=== PATIENT | male | born 1980 | race Hispanic/Latino ===

== ENCOUNTER 2020-09-01 07:00 | Emergency (ER) | payer SELFPAY ==
[2020-09-01] VITALS (17 sets, daily range): BP systolic 111–143; BP diastolic 69–85
[~2020-09-01] VITALS: Ht 172.7 cm; Wt 81.6 kg
[2020-09-01] MEDS ORDERED: IOHEXOL-350 75 ML VIAL IV ONE (07:40)
[2020-09-01 07:56] LABS: CREATININE 1.1 mg/dL (0.5-1.5); POTASSIUM 3.8 mmol/L (3.5-5.1)
[2020-09-01 08:00] LABS: ALBUMIN 3.7 g/dL (3.5-5.0); BILIRUBIN,TOTAL 0.3 mg/dL (0.2-1.0)
[2020-09-01 08:01] LABS: BASOPHILS % (AUTO) 0.9 % (0.0-5.0); EOSINOPHILS % (AUTO) 2.4 % (0.0-8.0); HEMATOCRIT 44.9 % (42-54); LYMPHOCYTES % (AUTO) 31.4 % (21.0-51.0); MEAN CORPUSCULAR HEMOGLOBIN 28.6 pg (27.0-33.0); MEAN CORPUSCULAR HGB CONC 32.3 g/dL (32.0-36.0); MEAN CORPUSCULAR VOLUME 88.6 fL (79-99); MONOCYTES % (AUTO) 7.9 % (3.0-13.0); PLATELET COUNT (AUTO) 307 K/uL (130-400); RED BLOOD CELL COUNT(AUTO) 5.07 MIL/uL (4.50-6.20); RED CELL DISTRIBUTION WIDTH 13.5 % (11.0-15.5); WHITE BLOOD COUNT (AUTO) 5.4 K/uL (4.8-10.8)
[2020-09-01 08:08] LABS: INR 1.02 (0.85-1.15); PROTHROMBIN TIME 11.1 SEC (9.6-11.6)
[2020-09-01 08:09] LABS: PARTIAL THROMBOPLASTIN TIME 28.1 SEC (26.3-35.5)
[2020-09-01] MEDS ORDERED: TETANUS/DIPHTHERIA TOXOID [ADULT] 0.5 ML VIAL IM SCH (09:42)
[2020-09-01] MEDS ORDERED: KETOROLAC 30MG VIAL (30MG/ML) IV SCH (09:45)
[2020-09-01] MEDS ORDERED: PHARMACY COMMUNICATION MISC SCH (09:45)
[2020-09-01] MEDS ORDERED: IBUP-2070 PO (10:00)
== END 2020-09-01 11:51 | disposition home or self-care (01) ==
LOC: EDH 07:00
DX: S60.511A Abrasion of right hand, initial encounter (principal); M54.2 Cervicalgia; M54.9 Dorsalgia, unspecified; Z79.899 Other long term (current) drug therapy; V89.2XXA Person injured in unspecified motor-vehicle accident, traffic, initial encounter; Y93.89 Activity, other specified; Y92.410 Unspecified street and highway as the place of occurrence of the external cause; Y99.8 Other external cause status
CPT/HCPCS: 36415; 70450; 71045; 71260; 72125; 73130; 74177; 80053; 85025; 85610; 85730; 90471; 90714; 96374; 99285; J1885; Q9967